=== PATIENT | female | born 1985 | race Caucasian/White ===

== ENCOUNTER 2020-07-05 11:00 | Inpatient (IN) | payer BC ==
[2020-07-07 13:15] VITALS: BMI 45.7
[2020-07-08] MEDS ORDERED: EPINEPHrine 1 MG/ML AMP ONE (06:13)
[2020-07-08] MEDS ORDERED: Bupivacaine PF 0.5% 30 ML VIAL ONE (06:13)
[2020-07-08] MEDS ORDERED: Thrombin 5000 UNITS/5 ML VIAL ONE (06:13)
[2020-07-08] MEDS ORDERED: Ketamine 50 MG/ML (10ML VIAL) ONE (06:46)
[2020-07-08] MEDS ORDERED: Fentanyl 100 MCG/2 ML VIAL ONE ×2 (06:46→12:33)
[2020-07-08] MEDS ORDERED: HYDROmorphone 2 MG/ML VIAL ONE (06:46)
[2020-07-08] MEDS ORDERED: Famotidine/PF 20 mg/2ml Vial ONE (06:47)
[2020-07-08] MEDS ORDERED: Midazolam HCl 2 mg/2 ml Vial ONE ×2 (06:47→11:56)
[2020-07-08] MEDS ORDERED: Acetaminophen 325 MG TAB PO PRN (06:58)
[2020-07-08] MEDS ORDERED: diphenhydrAMINE 25 MG CAP PO PRN (06:58)
[2020-07-08] MEDS ORDERED: Scopolamine 1.5 mg/72 hour Patch TD PRN (06:58)
[2020-07-08] MEDS ORDERED: Promethazine HCl 25 MG/ML VIAL IM PRN ×2 (06:58→12:24)
[2020-07-08] MEDS ORDERED: Tamsulosin HCl 0.4 MG CAP PO PRN (06:58)
[2020-07-08] MEDS ORDERED: Mag-Al 1200 mg/1200 mg/30 ML UDCUP PO PRN (06:58)
[2020-07-08] MEDS ORDERED: ALPRAZolam 0.5 MG TAB PO PRN (07:02)
[2020-07-08] MEDS ORDERED: Ondansetron PF 4 MG/2 ML Vial ONE ×3 (07:57→13:22)
[2020-07-08] MEDS ORDERED: Ondansetron HCl/PF 4 MG/2 ML Vial IVP PRN (12:24)
[2020-07-08] MEDS ORDERED: HYDROmorphone 2 MG/ML VIAL SLOW IVP PRN (12:24)
[2020-07-08] MEDS ORDERED: Promethazine HCl 25 MG/ML VIAL ONE (12:25)
[2020-07-08] MEDS ORDERED: Dexamethasone 20 MG/5 ML VIAL ONE (13:22)
[2020-07-08] MEDS ORDERED: Ketorolac Tromethamine 30 MG/ML VIAL ONE (13:22)
[2020-07-08] MEDS ORDERED: diphenhydrAMINE 50 MG/ML VIAL ONE (13:22)
[2020-07-08] MEDS ORDERED: Rocuronium Bromide 10 MG/ML (10ML VIAL) ONE (13:22)
[2020-07-08] MEDS ORDERED: PROPOFOL 200 MG/20 ML VIAL ONE (13:22)
[2020-07-08] MEDS ORDERED: Glycopyrrolate 0.2 MG/ML 5 ML SYRINGE ONE (13:22)
[2020-07-08] MEDS ORDERED: CEFAZOLIN 2 GM in Premix Bag 1 BAG IVPB SCH (14:00)
[2020-07-08] MEDS: Cyclobenzaprine 10 MG TAB PO SCH ×3 (14:16→20:03)
[2020-07-08] MEDS: HYDROcodone/Acetaminophen 7.5/325 mg Tablet PO PRN ×2 (14:16→18:20)
[2020-07-08] MEDS: Sodium Chloride 0.9% 1,000 ML IV SCH ×2 (14:16→19:53)
[2020-07-08] MEDS: Morphine 2 MG/ML VIAL SLOW IVP PRN ×2 (14:25→20:03)
[2020-07-08] MEDS: Acetaminophen/Codeine 30-300mg Tablet PO PRN (17:40)
[2020-07-08] MEDS: CEFAZOLIN 2 GM in Premix Bag 1 BAG IVPB SCH (18:21)
[2020-07-08] MEDS: Pregabalin 75 MG CAP PO SCH (20:02)
[2020-07-08] MEDS: DULoxetine 30 MG CAP PO SCH (20:03)
[2020-07-09] MEDS: Morphine 2 MG/ML VIAL SLOW IVP PRN ×4 (00:30→21:12)
[2020-07-09] MEDS: HYDROcodone/Acetaminophen 7.5/325 mg Tablet PO PRN ×3 (00:31→14:26)
[2020-07-09] MEDS: Acetaminophen/Codeine 30-300mg Tablet PO PRN ×3 (03:36→16:31)
[2020-07-09] MEDS: CEFAZOLIN 2 GM in Premix Bag 1 BAG IVPB SCH (03:37)
[2020-07-09] MEDS: Promethazine 25 MG TAB PO PRN ×2 (04:12→16:34)
[2020-07-09] MEDS: Cyclobenzaprine 10 MG TAB PO SCH ×3 (08:06→19:45)
[2020-07-09] MEDS: Sodium Chloride 0.9% 1,000 ML IV SCH (08:11)
[2020-07-09] MEDS: Pregabalin 75 MG CAP PO SCH (19:45)
[2020-07-09] MEDS: DULoxetine 30 MG CAP PO SCH (19:46)
[2020-07-10] MEDS: HYDROcodone/Acetaminophen 7.5/325 mg Tablet PO PRN ×3 (00:14→10:30)
[2020-07-10] MEDS: Sodium Chloride 0.9% 1,000 ML IV SCH (03:04)
[2020-07-10 07:32] VITALS: TEMP 98.5
[2020-07-10] MEDS: Cyclobenzaprine 10 MG TAB PO SCH (08:10)
[2020-07-10] MEDS: Promethazine 25 MG TAB PO PRN (10:29)
[2020-07-10 10:34] VITALS: BP 109/73
== END 2020-07-10 11:10 | disposition home or self-care (01) | DRG 455 ==
LOC: SURG A 07-08 05:48 → EDSTATUS 07-08 11:00 → SURG A 07-08 13:57
PROVIDERS: ADMIT Neurological Surgery; ATTEND Neurological Surgery
PROC: 0SG30AJ Fusion of Lumbosacral Joint with Interbody Fusion Device, Posterior Approach, Anterior Column, Open Approach (ICD-10-PCS; principal; 2020-07-08)
PROC: 0SG3071 Fusion of Lumbosacral Joint with Autologous Tissue Substitute, Posterior Approach, Posterior Column, Open Approach (ICD-10-PCS; 2020-07-08)
PROC: 0SB40ZZ Excision of Lumbosacral Disc, Open Approach (ICD-10-PCS; 2020-07-08)
PROC: 01NB0ZZ Release Lumbar Nerve, Open Approach (ICD-10-PCS; 2020-07-08)
DX: M48.07 Spinal stenosis, lumbosacral region (principal); M43.16 Spondylolisthesis, lumbar region; F41.9 Anxiety disorder, unspecified; M19.90 Unspecified osteoarthritis, unspecified site; F32.9 Major depressive disorder, single episode, unspecified; M48.061 Spinal stenosis, lumbar region without neurogenic claudication; M54.16 Radiculopathy, lumbar region; M99.23 Subluxation stenosis of neural canal of lumbar region; M99.63 Osseous and subluxation stenosis of intervertebral foramina of lumbar region; Z90.49 Acquired absence of other specified parts of digestive tract; Z82.49 Family history of ischemic heart disease and other diseases of the circulatory system; Z83.3 Family history of diabetes mellitus; Z79.899 Other long term (current) drug therapy; Z87.891 Personal history of nicotine dependence
CPT/HCPCS: 76000; C1713; C1768; J0171; J0690; J1100; J1170; J1200; J1885; J2250; J2270; J2405; J2550; J2704; J3010; J3370; J3490; L0639; Q0169; S0020; S0028